=== PATIENT | male | born 1945 | race Two or more races ===

== ENCOUNTER 2021-07-03 20:02 | Emergency (ER) | payer BC, OTHER ==
[~2021-07-03] VITALS: Ht 185.4 cm; Wt 104.3 kg
[2021-07-03 20:30] VITALS: BP 160/95
[2021-07-03 21:31] LABS: EOSINOPHILS # (AUTO) 0.2 K/uL (0-0.4); EOSINOPHILS % (AUTO) 3.9 % (0.0-4.0); HEMATOCRIT 42.8 % (36-52); LYMPHOCYTES # (AUTO) 0.9 K/uL (2.0-11.5); LYMPHOCYTES % (AUTO) 20.2 % (20.5-51.1); MEAN CORPUSCULAR HEMOGLOBIN 33 pg (27-31); MEAN CORPUSCULAR HGB CONC 35 g/dL (33-37); MEAN CORPUSCULAR VOLUME 93.3 fL (80-94); MONOCYTES # (AUTO) 0.6 K/uL (0.8-1.0); NEUTROPHILS # (AUTO) 2.9 K/uL (1.8-7.7); NEUTROPHILS % (AUTO) 62.9 % (42.2-75.2); PLATELET COUNT (AUTO) 213 K/uL (140-450); RED BLOOD CELL COUNT(AUTO) 4.59 MIL/uL (4.20-6.10); WHITE BLOOD COUNT (AUTO) 4.7 K/uL (4.8-10.8)
[2021-07-03 22:01] LABS: ALBUMIN 4.1 g/dL (3.4-5.0); ANION GAP 12.3 (8-16); ASPARTATE AMINOTRANSFERASE 35 U/L (15-37); CARBON DIOXIDE 26.2 mmol/L (21-32); CHLORIDE 92 mmol/L (98-107); CREATININE 0.8 mg/dL (0.6-1.3); GLUCOSE 154 mg/dL (74-106); POTASSIUM 3.5 mmol/L (3.5-5.1); PROTHROMBIN TIME 10.3 secs (10.8-13.4); SODIUM SERUM 127 mmol/L (136-145); TOTAL BILIRUBIN 0.5 mg/dL (0.0-1.0); UREA NITROGEN, BLOOD 13 mg/dL (7-18)
[2021-07-03] MEDS ORDERED: NACL 0.9% 500 ML IV ONE (23:40)
[2021-07-03] MEDS ORDERED: ALBU0.0912 IH (23:42)
--- NOTE | 2021-07-04 01:30 | NUR ---
PT TAKEN TO BED 10B.
--- NOTE | 2021-07-04 02:07 | NUR ---
IV removed, catheter intact and site benign. Applied folded 4x4 gauze and tape to stop bleeding.
[2021-07-04 02:08] VITALS: BP 162/98
== END 2021-07-04 02:08 | disposition home or self-care (01) ==
LOC: MED 20:02
DX: U07.1 COVID-19 (principal)
CPT/HCPCS: 36415; 71045; 80053; 83880; 84484; 85025; 85610; 85730; 87426; 93005; 99285; J7030